=== PATIENT | female | born 1990 | race Caucasian/White ===

== ENCOUNTER 2018-12-24 17:40 | Outpatient (CLI) | payer OTHER ==
[~2018-12-24] VITALS: Ht 152.4 cm; Wt 62.2 kg
[2018-12-24] MEDS ORDERED: PREN-93 PO (18:02)
[2018-12-24 18:03] VITALS: BP 107/60; PULSE 80; RESP 18; Ht 152.4 cm; Wt 62.2 kg
--- NOTE | 2018-12-24 19:24 | TRIAGE ---
OB Triage Datetime Report Generated by CPN: 12/24/2018 19:24 Datetime: 12/24/2018 19:00 Stage of : OB Triage Maternal Assessment Level of Consciousness: Fully Conscious Labor Evaluation Frequency: 5-7 Monitor Mode: External Duration (sec)2399: 80-120 Quality: Mild Resting Tone [place]: Relaxed Heart Rate FHR Baseline Rate: 135 Monitor Mode: External US Variability: Moderate 6-25 bpm Accelerations: 15X15 Decelerations: None Category: Category I Pain Assessment Pain Scale: 0 Pain Goal: 3 Vaginal Exam Membrane Status: Intact Vaginal Bleeding: None Datetime: 12/24/2018 17:57 Assessment Type: Triage Maternal Assessment Level of Consciousness: Fully Conscious DTR's/Clonus: DTRs 2+; No Clonus Headache: Denies Blurred Vision: No Respiratory Effort: Unlabored; Regular Rhythm; Equal Expansion Breath Sounds, Left: Clear and Equal Breath Sounds, Right: Clear and Equal Nausea/Vomiting: Denies RUQ Epigastric Pain: Denies Lower Extremities Edema: None Degree: None Upper Extremities Edema: None Degree: None Facial Edema: None Fall Risk Assessment History of Falling: (0) No Secondary Diagnosis: (0) No Ambulatory Aid: (0) Bedrest/Nurse Assist IV Therapy: (0) No Gait: (0) Normal/Bedrest/Immobile Mental Status: (0) Oriented to Own Ability Fall Score: 0 Fall Risk Score Definition: No Risk: No action required Datetime: 12/24/2018 17:55 Time of Arrival: 12/24/2018 17:35 EGA: 37.3 Arrived By: Ambulatory Arrived From: Office Chief Complaint: PT. SENT FROM CLINIC TO EVAL FOR GENRALIZED ITCHING Movement: Present Contractions: Denies/Absent Rupture of Membranes: Denies Vaginal Bleeding: None Vaginal Discharge: Denies Recent Sexual Intercouse: Denies Abdominal Trauma: Not Applicable Patient Complaints: None Time Provider Notified: 12/24/2018 17:35 Provider Notified: DELAD Initial Plan: BPP/EFW/CBC/CMP Datetime: 12/24/2018 17:54 Monitor Mode: External Monitor Mode: External US
--- NOTE | 2018-12-24 19:27 | PN ---
Triage Information Date/Time Reason for visit: Generalized itching Weeks of Gestation 37 weeks /Para Diabetes: none Hypertention: none Objective Vital Signs Date Temp Pulse Resp B/P (MAP) Pulse Ox O2 O2 Flow FiO2 Time Delivery Rate 12/24/18 98.5 80 18 107/60 Room Air 18:03 (76) Heart Rate: 120's Heart Rate Comments Reactive Exam Cervix closed Results/Medications Result Diagram: 12/24/18 1822 12/24/18 1822 Results 24 hrs Laboratory Tests Test 12/24/18 18:22 White Blood Count 7.2 Red Blood Count 4.18 L Hemoglobin 13.1 Hematocrit 39.6 Mean Corpuscular Volume 94.7 Mean Corpuscular Hemoglobin 31.3 Mean Corpuscular Hemoglobin Concent 33.1 Red Cell Distribution Width 13.2 Platelet Count 231 Mean Platelet Volume 11.1 H Immature Granulocytes % 2.200 H Neutrophils % 67.6 Lymphocytes % 16.6 Monocytes % 12.0 H Eosinophils % 0.8 Basophils % 0.8 Nucleated Red Blood Cells % 0.0 Immature Granulocytes # 0.160 H Neutrophils # 4.9 Lymphocytes # 1.2 Monocytes # 0.9 Eosinophils # 0.1 Basophils # 0.1 Nucleated Red Blood Cells # 0.0 Sodium Level 138 Potassium Level 3.7 Chloride Level 108 Carbon Dioxide Level 23 Anion Gap 7 Blood Urea Nitrogen 7 Creatinine 0.52 Est Glomerular Filtrat Rate mL/min > 60 Glucose Level 93 Calcium Level 8.8 Total Bilirubin 0.4 Direct Bilirubin 0.00 Indirect Bilirubin 0.4 Aspartate Amino Transf (AST/SGOT) 26 Alanine Aminotransferase (ALT/SGPT) 38 Alkaline Phosphatase 364 H Total Protein 6.6 Albumin 3.3 Globulin 3.30 H Albumin/Globulin Ratio 1.00 Imaging Results EFW and BPP normal Disposition: Discharge Assessment/Plan Bile acids done in clinic today ad report pending kick count Antepartum testing on 12/27/2018, NELLIE GARCÍA MD December 24, 2018 19:27
== END 2018-12-24 19:30 | disposition home or self-care (01) ==
LOC: OBT 17:40 → L-D 17:42 → OBT 19:30
PROVIDERS: ATTEND Obstetrics & Gynecology
DX: O26.893 Other specified pregnancy related conditions, third trimester (principal); L29.9 Pruritus, unspecified; Z3A.37 37 weeks gestation of pregnancy
CPT/HCPCS: 76815; 76818; 80053; 85025; Z7500; G0463

== ENCOUNTER 2018-12-27 10:43 | Outpatient (CLI) | payer OTHER ==
[~2018-12-27] VITALS: Ht 152.4 cm; Wt 62.7 kg
[~2018-12-27 10:43] MED LIST: PREN-93 PO
[2018-12-27 12:38] VITALS: BP 104/60; PULSE 77; RESP 18
--- NOTE | 2018-12-27 13:29 | PN ---
Triage Information Date/Time Reason for visit: generalized itching Weeks of Gestation 35 weeks /Para Diabetes: none Hypertention: none Objective Vital Signs Date Temp Pulse Resp B/P (MAP) Pulse Ox O2 O2 Flow FiO2 Time Delivery Rate 12/27/18 98.2 77 18 104/60 12:38 (75) Heart Rate: 130's Heart Rate Comments Reactive Results/Medications Imaging Results BPP 03/13 Disposition: Discharge Assessment/Plan Bile acids pending Antepartum testing 12/31/2018 NELLIE GARCÍA MD December 27, 2018 13:29
--- NOTE | 2018-12-27 14:54 | TRIAGE ---
OB Triage Datetime Report Generated by CPN: 12/27/2018 14:54 Datetime: 12/27/2018 13:18 Stage of : OB Triage Datetime: 12/27/2018 13:05 Labor Evaluation Frequency: 8-10 Monitor Mode: External Duration (sec)2399: 50-70 Quality: Mild Pattern: Normal: <= 5 Contractions in [address] [place]: Relaxed Heart Rate FHR Baseline Rate: 135 Monitor Mode: External US Variability: Moderate 6-25 bpm Accelerations: 10X10 Decelerations: None Category: Category I Pain Assessment Pain Scale: 0 Pain Presence: None/Denies Pain Type: N/A Pain Goal: 3 Pain Relief Measures: Comfort Measures Datetime: 12/27/2018 12:05 Stage of : OB Triage Assessment Type: Triage Maternal Assessment Level of Consciousness: Fully Conscious DTR's/Clonus: DTRs 2+; No Clonus Headache: Denies Blurred Vision: No Respiratory Effort: Unlabored; Regular Rhythm; Equal Expansion Breath Sounds, Left: Clear and Equal Breath Sounds, Right: Clear and Equal Nausea/Vomiting: Denies RUQ Epigastric Pain: Denies Facial Edema: None Temperature Route: Axillary Fall Risk Assessment History of Falling: (0) No Secondary Diagnosis: (0) No Ambulatory Aid: (0) Bedrest/Nurse Assist IV Therapy: (0) No Gait: (0) Normal/Bedrest/Immobile Mental Status: (0) Oriented to Own Ability Fall Score: 0 Fall Risk Score Definition: No Risk: No action required Labor Evaluation Frequency: 5-10 Monitor Mode: External Duration (sec)2399: 60-80 Quality: Mild Pattern: Normal: <= 5 Contractions in 10 Minutes Interventions: Sterile Vaginal Exam Heart Rate FHR Baseline Rate: 145 Monitor Mode: External US Variability: Moderate 6-25 bpm Accelerations: 10X10 Decelerations: None Category: Category I Pain Assessment Pain Scale: 0 Pain Presence: None/Denies Pain Type: N/A Pain Goal: 3 Pain Relief Measures: Comfort Measures Vaginal Exam Dilatation (cms): 0.5 Effacement (%): 50 Station: -2 Exam By: S ERAN Membrane Status: Intact Datetime: 12/27/2018 12:03 Time of Arrival: 12/27/2018 10:35 EGA: 37.6 Arrived By: Ambulatory Arrived From: Home Chief Complaint: FOLLOW UP GENERALIZED ITCHING, Movement: Present Contractions: Denies/Absent Rupture of Membranes: Ruptured Vaginal Discharge: Denies Recent Sexual Intercouse: Denies Abdominal Trauma: Not Applicable Patient Complaints: None Time Provider Notified: 12/27/2018 13:18 Provider Notified: DELSHAD Initial Plan: NST/BPP Datetime: 12/27/2018 11:28 Stage of : OB Triage Datetime: 12/27/2018 11:25 Stage of : OB Triage Datetime: 12/24/2018 17:57 Fall Score: 0 Fall Risk Score Definition: No Risk: No action required Datetime: 12/24/2018 17:55 EGA: 37.3
== END 2018-12-27 13:30 | disposition home or self-care (01) ==
LOC: OBT 10:43 → L-D 10:44 → OBT 13:30
PROVIDERS: ATTEND Obstetrics & Gynecology
DX: O26.893 Other specified pregnancy related conditions, third trimester (principal); L29.9 Pruritus, unspecified; Z3A.35 35 weeks gestation of pregnancy
CPT/HCPCS: 76818; Z7500; G0463

== ENCOUNTER 2018-12-31 09:45 | Inpatient (IN) | payer OTHER ==
[~2018-12-31] VITALS: Ht 152.4 cm; Wt 61.4 kg
[2018-12-31 09:58] VITALS: BP 118/56; Ht 152.4 cm; Wt 61.4 kg
--- NOTE | 2018-12-31 12:11 | TRIAGE ---
OB Triage Datetime Report Generated by CPN: 12/31/2018 12:11 Datetime: 12/31/2018 12:06 Category: Category III Datetime: 12/31/2018 12:03 Vaginal Exam Dilatation (cms): 0.0 Effacement (%): 50 Station: -3 Exam By: DR. DELSHAD Datetime: 12/31/2018 11:34 Labor Evaluation Frequency: x1 Duration (sec)2399: 60 Pattern: Normal: <= 5 Contractions in 10 Minutes Resting Tone [place]: Relaxed Heart Rate FHR Baseline Rate: 135 Monitor Mode: External US Variability: Moderate 6-25 bpm Accelerations: 15X15 Decelerations: None Category: Category I Pain Presence: Constant Pain Type: Ache Pain Assessment Comments: itching all over belly- visable rash Datetime: 12/31/2018 11:25 Comments: off monitor patient takes us off due to itching . Datetime: 12/31/2018 10:54 Labor Evaluation Frequency: X1 Monitor Mode: External Duration (sec)2399: 60 Pattern: Normal: <= 5 Contractions in 10 Minutes Resting Tone [place]: Relaxed Monitor Mode: External US Variability: Moderate 6-25 bpm Accelerations: 15X15 Decelerations: None Category: Category I Datetime: 12/31/2018 10:44 Comments: BACK ON MONITOR Datetime: 12/31/2018 10:14 Comments: US AT BEDSIDE Datetime: 12/31/2018 09:55 Time of Arrival: 12/31/2018 09:41 EGA: 38.3 Arrived By: Ambulatory Arrived From: Home Chief Complaint: F/UP NST BPP Movement: Present Contractions: Denies/Absent Rupture of Membranes: Denies Vaginal Bleeding: None Vaginal Discharge: Denies Recent Sexual Intercouse: Denies Abdominal Trauma: Not Applicable Patient Complaints: None Time Provider Notified: 12/31/2018 10:56 Provider Notified: DR. GARCÍA Initial Plan: NST BPP FOR ITCHING Datetime: 12/31/2018 09:50 Stage of : OB Triage Assessment Type: Triage Maternal Assessment Level of Consciousness: Fully Conscious DTR's/Clonus: DTRs 2+; No Clonus Headache: Denies Blurred Vision: No Respiratory Effort: Unlabored; Regular Rhythm; Equal Expansion Breath Sounds, Left: Clear and Equal Breath Sounds, Right: Clear and Equal Nausea/Vomiting: Denies RUQ Epigastric Pain: Denies Lower Extremities Edema: None Degree: None Upper Extremities Edema: None Degree: None Facial Edema: None Temperature Route: Oral Fall Risk Assessment History of Falling: (0) No Secondary Diagnosis: (0) No Ambulatory Aid: (0) Bedrest/Nurse Assist IV Therapy: (0) No Gait: (0) Normal/Bedrest/Immobile Mental Status: (0) Oriented to Own Ability Fall Score: 0 Fall Risk Score Definition: No Risk: No action required Monitor Mode: External Monitor Mode: External US Pain Assessment Pain Scale: 0 Pain Presence: None/Denies Pain Type: N/A Datetime: 12/27/2018 14:47 Time of Arrival: 12/31/2018 09:41 EGA: 38.3 Arrived By: Ambulatory Arrived From: Home Chief Complaint: F/UP NST BPP, FOR ITCHING Movement: Present Contractions: Denies/Absent Rupture of Membranes: Denies Vaginal Bleeding: None Vaginal Discharge: Denies Recent Sexual Intercouse: Denies Abdominal Trauma: Not Applicable Patient Complaints: Other Datetime: 12/27/2018 12:05 Fall Score: 0 Fall Risk Score Definition: No Risk: No action required Datetime: 12/27/2018 12:03 EGA: 37.6 Datetime: 12/24/2018 17:57 Fall Score: 0 Fall Risk Score Definition: No Risk: No action required Datetime: 12/24/2018 17:55 EGA: 37.3
[2018-12-31] MEDS ORDERED: METHYLERGONOVINE 0.2 MG INJ IM PRN (12:30)
[2018-12-31] MEDS ORDERED: OXYTOCIN 30 UNITS/LR 500 ML IV PRN (12:30)
[2018-12-31] MEDS ORDERED: CARBOPROST 250 MCG INJ IM PRN (12:30)
[2018-12-31] MEDS ORDERED: AMPICILLIN 2 GM/NS (PMX) 100 ML IV ONE (12:30)
[2018-12-31] MEDS ORDERED: BUTORPHANOL 2 MG INJ IV PRN (12:30)
[2018-12-31] MEDS ORDERED: OXYTOCIN 30 UNITS/LR 500 ML IV SCH ×3 (12:30→22:00)
[2018-12-31] MEDS ORDERED: LIDOCAINE 1% (MPF) 30 ML INJ INJ PRN (12:30)
[2018-12-31] MEDS ORDERED: MISOPROSTOL 200 MCG TAB PR PRN (12:30)
[2018-12-31] MEDS ORDERED: MISOPROSTOL 50 MCG CAPSULE PO ONE ×2 (13:00→17:00)
[2018-12-31] MEDS: LACTATED RINGER'S 1,000 ML IV SCH ×2 (13:08→22:33)
[2018-12-31] MEDS: AMPICILLIN 1 GM/NS (PMX) 50 ML IV SCH ×2 (17:13→21:43)
--- NOTE | 2018-12-31 21:01 | HP ---
Date/Time of Note Date/Time of Note DATE: 12/31/18 TIME: 20:57 OB - History Hx of Present Chief Complaint: generalized itching Estimated Due Date: Jan 11, 2019 : 1 Para: 0 Spontaneous : 0 Therapeutic : 0 Care: Good Care Ultrasounds: Normal mid trimester US Obstetrical Complications: None Medical Complications: None Other Concerns: intrahepatic cholestasis of Past Family/Social History * Past Medical, Surgical, Family and Obstetric Histories reviewed from chart. GBS Status: Positive OB Admission Exam Vital Signs Vital Signs Vital Signs Date Temp Pulse Resp B/P (MAP) Pulse Ox O2 O2 Flow FiO2 Time Delivery Rate 12/31/18 98.0 118/56 09:58 (76) Physical Exam HEENT: WNL Heart: Rhythm Normal Lungs: Clear, Equal Abdomen: WNL Extremities: Normal Reflexes: Normal Cervical Dilatation: None Effacement: 25% Station: -2 Membranes: Intact Heart Rate: 120's Accelerations: Accelerations Present Decelerations: No Decelerations Varibility: Moderate Last 72 hours Lab Results CBC & BMP 12/31/18 12:41 OB Assessment/Plan Reason for admission: induction of labor Plan: Induction Induction Method: per Misoprostol Protocol NELLIE GARCÍA MD December 31, 2018 21:01
[2019-01-01] MEDS: AMPICILLIN 1 GM/NS (PMX) 50 ML IV SCH ×6 (01:38→18:07)
[2019-01-01] MEDS: LACTATED RINGER'S 1,000 ML IV SCH ×2 (09:54→17:17)
--- NOTE | 2019-01-01 13:57 | PREAC ---
Date/Time of Note Date/Time of Note DATE: 01/01/19 TIME: 13:56 Anesthesia Eval and Record Evaluation Time Pre-Procedure Interview DATE: 01/01/19 TIME: 13:56 Age 28 Sex female NPO: 8 hrs Preoperative diagnosis intrauterine Planned procedure labor epidural Past Medical History Past Medical History: Includes : : (1), Para: (0) Surgery & Anesthesia Issues No known issue Meds Anticoagulation: No Beta Jose L within 24 hr: No Reason Beta Jose L not given: Pt. not on B-Jose L Reported Medications Vit No.124/Iron/FA ( Vitamin Tablet) 1 Each Tablet, 1 EACH PO DAILY, TAB 12/24/18 Current Medications Lactated Ringer's 1,000 ml @ 125 mls/hr Q8H IV Last administered on 01/01/19at 09:54; Admin Dose 125 MLS/HR; Start 12/31/18 at 12:11 Ampicillin 50 ml @ 100 mls/hr Q4H IV Last administered on 01/01/19at 09:54; Admin Dose 100 MLS/HR; Start 12/31/18 at 16:30 Butorphanol Tartrate (Stadol) 2 mg Q2H PRN IV .PAIN SCALE 6-10; Start 12/31/18 at 12:30 Lidocaine (Xylocaine 1% (Mpf)) 30 ml ONCE PRN INJ .EPISIOTOMY; Start 12/31/18 at 12:30 Oxytocin/Lactated Ringer's 500 ml @ 500 mls/hr ONCE POST IV ; Start 12/31/18 at 12:30 Oxytocin/Lactated Ringer's 500 ml @ 125 mls/hr POST IV ; Start 12/31/18 at 12:30 Oxytocin/Lactated Ringer's 500 ml @ 0 mls/hr ONCE PRN IV .VAGINAL BLEEDING; Start 12/31/18 at 12:30 Methylergonovine Maleate (Methergine) 0.2 mg ONCE PRN IM .VAGINAL BLEEDING; Start 12/31/18 at 12:30 Carboprost Tromethamine (Hemabate) 250 mcg ONCE PRN IM .VAGINAL BLEEDING; Start 12/31/18 at 12:30 Misoprostol (Cytotec) 1,000 mcg ONCE PRN VA .VAGINAL BLEEDING; Start 12/31/18 at 12:30 Oxytocin/Lactated Ringer's 500 ml @ 0 mls/hr FOR AUGMENTATION IV Last administered on 12/31/18at 22:33; Admin Dose 1 MLS/HR; Start 12/31/18 at 22:00 Meds reviewed: Yes Allergies Coded Allergies: No Known Allergy (Unverified , 12/24/18) Allergies Reviewed: Yes Labs/Studies Labs Reviewed: Reviewed by anesthesiologist Result Diagram: 12/31/18 1241 test: N/A Pre-procedure Exam Last vitals Vital Signs Date Temp Pulse Resp B/P (MAP) Pulse Ox O2 O2 Flow FiO2 Time Delivery Rate 12/31/18 98.0 118/56 09:58 (76) Airway: Adequate mouth opening, Adequate thyromental dist Mallampati: Mallampati II Teeth: Normal Lung: Normal Heart: Normal ASA Physical Status ASA physical status: 2 Emergency: None Planned Anesthetic Neuraxial: Epidural Planned Pain Management Epidural, Parenteral pain med Pre-operative Attestations Prior to commencing anesthesia and surgery, the patient was re-evaluated, there was verification of: *The patient's identity *The results of appropriate recent lab work and preoperative vital signs *The above evaluation not changing prior to induction *Anesthetic plan, risk benefits, alternative and complications discussed with patient/family; questions answered; patient/family understands, accepts and wishes to proceed. CHIQUI DOWNEY MD January 01, 2019 13:56
--- NOTE | 2019-01-01 21:30 | LDN ---
Date/Time of Note Date/Time of Note DATE: 01/01/19 TIME: 21:28 Delivery Summary Weeks of Gestation 38+weeks Placenta Delivered: Spontaneously Meconium: none Episiotomy: No Laceration repair: Second degree perineal alceration repaired with 3-0 Vicryl and 3-0 chromic. Anesthesia type: Local Estimated blood loss: 300 Sponge & Needle done & correct: Yes All needle counts correct: Yes Any foreign bodies felt in the: No Infant Delivery Information Sex Infant Sex: male Apgars 1 Minute: 9 5 Minute: 9 Suctioning Nose & mouth suctioned at carrol: No Delee suction performed: No Umbilical Cord Umbilical cord with: 3 Vessels Cord presentations: no nuchal cord Cord Blood was obtained: Yes Mother & Baby Disposition Disposition Mom & Baby to Maternity; Good: Yes NELLIE GARCÍA MD January 01, 2019 21:30
[2019-01-01] MEDS ORDERED: IBUPROFEN 600 MG TAB PO PRN (22:30)
[2019-01-01 23:00] VITALS: BP 105/64; PULSE 71; RESP 20
[2019-01-01] MEDS ORDERED: LACTATED RINGER'S 1,000 ML IV* SCH (23:45)
[2019-01-02] MEDS ORDERED: ACETAMINOPHEN 325 MG TAB PO PRN
[2019-01-02] MEDS ORDERED: METHYLERGONOVINE 0.2 MG INJ IM PRN
[2019-01-02] MEDS ORDERED: OXYTOCIN 30 UNITS/LR 500 ML IV PRN
[2019-01-02] MEDS ORDERED: BENZOCAINE 20% 56 ML SPRAY TOP PRN
[2019-01-02] MEDS ORDERED: HYDROCODONE/APAP (5/325) TAB PO PRN
[2019-01-02] MEDS ORDERED: WITCH HAZEL/GLYCERIN PAD PR PRN
[2019-01-02] MEDS ORDERED: CARBOPROST 250 MCG INJ IM PRN
[2019-01-02] MEDS ORDERED: MISOPROSTOL 200 MCG TAB PR PRN
[2019-01-02] MEDS ORDERED: DIBUCAINE 1% 30 GM OINT TOP PRN
[2019-01-02 04:00] VITALS: BP 103/60; PULSE 82; RESP 20
[2019-01-02] MEDS: IBUPROFEN 600 MG TAB PO SCH ×5 (05:38→23:37)
[2019-01-02 08:00] VITALS: BP 100/58; PULSE 87; RESP 18
[2019-01-02 12:00] VITALS: BP 94/50; PULSE 83; RESP 18
--- NOTE | 2019-01-02 14:35 | QN ---
Documentation Comment No complaint Afebrile VSS Fundus firm Stable Continue present care. NELLIE GARCÍA MD January 02, 2019 14:35
[2019-01-02 16:00] VITALS: BP 92/51; PULSE 83; RESP 18
[2019-01-02 20:35] VITALS: BP 101/64; PULSE 95; RESP 18
[2019-01-02] MEDS: SENNA/DOCUSATE NA (8.6MG/50MG) TAB PO SCH (21:58)
[2019-01-03 03:33] VITALS: BP 97/58; PULSE 83; RESP 17
[2019-01-03] MEDS: IBUPROFEN 600 MG TAB PO SCH ×2 (05:39→12:27)
[2019-01-03 08:00] VITALS: BP 95/58; PULSE 72; RESP 19
[2019-01-03] MEDS ORDERED: DIPHTH/TET/ACEL PERTUSS (ADULT) 0.5 ML VIAL IM* ONE (09:00)
[2019-01-03] MEDS: SENNA/DOCUSATE NA (8.6MG/50MG) TAB PO SCH (09:36)
--- NOTE | 2019-01-03 14:08 | DS ---
Date/Time of Note Date/Time of Note DATE: 01/03/19 TIME: 14:07 Obstetrical Discharge Record Final Diagnosis Final Diagnosis: Term delivered Other Final Diagnosis Intrahepatic cholestasis of Vaginal Delivery Obstetrical Delivery: Spontaneous Complications Induction: Yes Condition on Discharge Physical Assessment Voiding: Yes Bowel Movement: Yes Breast: Soft, non-tender, Filling Fundus: Firm Calf Tenderness: No Patient Condition: Stable ENLLIE GARCÍA MD January 03, 2019 14:08
--- NOTE | 2019-01-04 15:44 | DELSUM ---
Delivery Summary A-C Datetime Report Generated by CPN: 01/04/2019 15:44 DELIVERY PERSONNEL Still Runner: Stefanie Carson MATERNAL INFORMATION Delivery Anesthesia: None Medications in Delivery: 30 UNITS PITOCIN ; METHERGINE 0.2MG IM Delivery QBL (ml): 300 Placenta Cultured: No Maternal Complications: Other Other Maternal Complications: CHOLESTASIS BILE ACIDS 26 LABOR SUMMARY EDC: 01/11/2019 00:00 No. Babies in Womb: 1 Attempted: No Labor Anesthesia: None LABOR INFORMATION Reason for Induction: Other Reason for Induction- Other: CHOLESTASIS Cervical Ripening Agents: Cytotec @ Oxytocin: Induction Group B Beta Strep: Positive Antibiotics # of Doses: 8 Antibiotics Time of Last Dose: 01/01/2019 18:06 Steroids Given: None Reason Steroids Not Administered: Not Applicable MEMBRANES Membranes Rupture Method: Artificial Rupture of Membranes: 01/01/2019 07:07 Length of Rupture (hr): 13.55 Amniotic Fluid Color: Clear Amniotic Fluid Amount: Small Amniotic Fluid Odor: None STAGES OF LABOR Stage 3 hr: 0 Stage 3 min: 4 VAGINAL DELIVERY Episiotomy: None Laceration Extension: Second Degree Laceration Type: Perineal Laceration Repair: Yes Initial Vag Sponge Count: 10 Final Vag Sponge Count: 10 Initial Vag Sharps Count: 1+2 Final Vag Sharps Count: 3 Sponge Count Correct: Yes; Vaginal Sweep Performed Sharps Count Correct: Yes BABY A INFORMATION Delivery Date/Time: 01/01/2019 20:40 Method of Delivery: Vaginal Born in Route : No : N/A Forceps: N/A Vacuum Extraction: N/A Shoulder Dystocia : N/A SHOULDER DYSTOCIA BABY A Delivery Date/Time: 01/01/2019 20:40 PRESENTATION/POSITION BABY A Presentation: Cephalic Cephalic Presentation: Vertex Vertex Position: Left Occipital Posterior Breech Presentation: N/A PLACENTA INFORMATION BABY A Placenta Delivery Time : 01/01/2019 20:44 Placenta Method of Delivery: Spontaneous Placenta Status: Delivered SCORES BABY A Heart Rate 1 min: >100 bpm Resp Effort 1 min: Good Cry Reflex Irritability 1 min: Cough/Sneeze/Pulls Away Muscle Tone 1 min: Active Motion Color 1 min: Body [place], Extremit Blue SCORE 1 MIN: 9 Heart Rate 5 min: >100 bpm Resp Effort 5 min: Good Cry Reflex Irritability 5 min: Cough/Sneeze/Pulls Away Muscle Tone 5 min: Active Motion Color 5 min: Body [place], Extremit Blue Resuscitation Effort 5 min: Tactile Stimulation SCORE 5 MIN: 9 INFORMATION BABY A Gestational Age at Delivery: 38.4 Gestational Status: Early Term- 37- 38.6 Weeks Outcome : Liveborn Infant Condition : Stable Sex: Male IDENTIFICATION/MEDS BABY A ID Band Number: [id number] ID Band Location: Right Leg; Left Arm Sensor Applied: Yes Sensor Number: [id number] Sensor Location : Cord Clamp Vitamin K Given : Not Given Erythromycin Given: Not Given WEIGHT/LENGTH BABY A Birthweight (gm): 3475 Infant Weight (lb): 7 Weight (oz): 11 Infant Length (in): 20.00 Length (cm): 50.80 CORD INFORMATION BABY A No. Cord Vessels: 3 Nuchal Cord : N/A Cord Blood Taken: Yes Suction: Mouth; Nose ASSESSMENT BABY A Complications: Decreased Variability; Multiple Variable Decels Physical Findings at Delivery: Within Normal Limits Physical Findings- Other: VOID Respirations: Appears Normal Crystal Gazer/ALS Called : No Infant Care By: GERTRUDIS Willson RN Transferred To: Remains with Mother
== END 2019-01-03 15:20 | disposition home or self-care (01) | DRG 805 ==
LOC: OBT 09:45 → L-D 09:46 → OBT 12:11 → L-D 12:13 → PP1 01-01 23:02
PROVIDERS: ADMIT Obstetrics & Gynecology; ATTEND Obstetrics & Gynecology
PROC: 10E0XZZ Delivery of Products of Conception, External Approach (ICD-10-PCS; principal; 2018-12-31)
PROC: 0KQM0ZZ Repair Perineum Muscle, Open Approach (ICD-10-PCS; 2018-12-31)
DX: O26.62 Liver and biliary tract disorders in childbirth (principal); K83.1 Obstruction of bile duct; Z37.0 Single live birth; O99.824 Streptococcus B carrier state complicating childbirth; O70.1 Second degree perineal laceration during delivery; Z3A.38 38 weeks gestation of pregnancy
CPT/HCPCS: 76818; 85025; 85610; 85730; 86592; 86850; 86900; 86901; 99464; G0463; J0290; J0595; J2210; J2590; J7120